=== PATIENT | female | born 1995 | race Two or more races ===

== ENCOUNTER 2018-04-26 00:37 | Emergency (ER) | payer MEDICAID ==
[2018-04-26] MEDS ORDERED: Sodium Chloride 0.9% 10 ML Syringe FLUSH PRN (00:46)
[2018-04-26] MEDS ORDERED: Lidocaine 1% with EPINEPHrine 1:100,000 20 ML MDV INJECT ONE (00:53)
[2018-04-26] MEDS ORDERED: Sodium Chloride 0.9% 1,000 ML IV SCH (01:00)
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
[2018-04-26 01:39] LABS: ACETAMINOPHEN 0 ug/mL (10-30)
== END 2018-04-26 14:50 ==
LOC: JD.ED 00:37
DX: T45.0X2A Poisoning by antiallergic and antiemetic drugs, intentional self-harm, initial encounter (principal); S61.511A Laceration without foreign body of right wrist, initial encounter; F32.9 Major depressive disorder, single episode, unspecified; F10.120 Alcohol abuse with intoxication, uncomplicated; Y90.5 Blood alcohol level of 100-119 mg/100 ml; X78.8XXA Intentional self-harm by other sharp object, initial encounter
CPT/HCPCS: 12002; 36415; 80053; 80306; 84443; 84703; 85025; 93005; 96360; 96361; 99285; G0480; J7040; J7050

== ENCOUNTER 2018-05-04 15:25 | Emergency (ER) | payer MEDICAID | END 2018-05-04 15:35 | LOC: JD.ED 15:25 | DX: S61.511D Laceration without foreign body of right wrist, subsequent encounter (principal); X58.XXXD Exposure to other specified factors, subsequent encounter ==

== ENCOUNTER 2019-01-04 21:11 | Emergency (ER) | payer OTHER, MEDICAID ==
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
--- NOTE | 2019-01-06 08:31 | ER ---
CHIEF COMPLAINT: Swelling. HISTORY OF PRESENT ILLNESS: The patient has had worsening swelling over the last month or so, mostly affecting her lower extremities, but also in her hands. According to the patient, she has not had any lab work done. She has been seen in the clinic, and she has not had any results for this. She has some lower leg swelling, worse on the left. However, she had trauma to this leg when she was younger. She has some swelling and discomfort in her hands. She has a strong family history of thyroid disorders. She has not had any nausea or vomiting. No chest pain, chest pressure. No breathing difficulties or shortness of breath. REVIEW OF SYSTEMS: GENERAL: Negative for fevers, chills. Some fatigue, weakness, and tiredness. ENT: Unremarkable. CARDIOVASCULAR: No chest pain, chest pressure. PULMONARY: No breathing difficulty, shortness of breath. GASTROINTESTINAL: Intermittent abdominal discomfort, but no nausea, vomiting, constipation, or diarrhea. GENITOURINARY: No burning or frequency with urination. PHYSICAL EXAMINATION: VITAL SIGNS: Stable. Afebrile. No acute distress. HEENT: Head: Normocephalic. Ears: Tympanic membranes normal color and contour. External ears and canals normal. Eyes: Normal. Oropharynx: Moist mucosa. No evidence of erythema or exudate. No acute changes. NECK: Supple. No palpable masses. No lymphadenopathy. Thyroid is not palpable. HEART: Regular rate and rhythm. No murmur. LUNGS: Clear. Respirations are nonlabored. No wheezes, crackles, or rhonchi. ABDOMEN: Active sounds, soft. LABORATORY EVALUATION: CBC is for the most part unremarkable, normal differential. D-dimer was checked, which was 0.42, normal. Chemistries were nondiagnostic. TSH 2.55, free T4 of 0.89. Urinalysis negative. COURSE IN THE EMERGENCY ROOM: I discussed the findings and labs with the patient. I really have no good explanation for her symptomology at this point. She does have some puffiness on exam, mostly in her lower extremities, left greater than right, mild in her hands. We will try her on a brief course of Lasix 20 mg daily with potassium 20 mEq daily. She has followup in the clinic in 4 to 5 days. ASSESSMENT: 1. Fatigue. 2. Edema, mild. PLAN: 1. The patient is to be started on Lasix 20 mg, #7, 1 p.o. daily. 2. Potassium chloride 20 mEq, #7, 1 p.o. daily. 3. The patient agrees to return to the emergency room with any questions, problems, or worsening symptoms. MMODAL /[id number]
== END 2019-01-05 00:40 | disposition home or self-care (01) ==
LOC: JD.ED 21:11
DX: R53.83 Other fatigue (principal); R60.9 Edema, unspecified
CPT/HCPCS: 36415; 80053; 81001; 84439; 84443; 85007; 85027; 85379; 99283; 99284

== ENCOUNTER 2019-03-05 20:54 | Emergency (ER) | payer OTHER, MEDICAID ==
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
[2019-03-05] MEDS ORDERED: Sodium Chloride 0.9% 1,000 ML IV SCH (21:30)
[2019-03-05] MEDS ORDERED: Ondansetron 4 MG/2 ML SDV IVPUSH ONE (21:31)
[2019-03-05] MEDS ORDERED: HYDROmorphone 0.5 MG/0.5 ML Syringe IVPUSH ONE (21:32)
[2019-03-05] MEDS ORDERED: HYDROmorphone 1 MG/ML Syringe IVPUSH ONE (23:19)
--- NOTE | 2019-03-06 08:18 | US ---
First trimester obstetrical ultrasound: Multiple real-time images were obtained transvaginally. Comparison: No previous studies for current . A very small cystic area within the endometrial cavity is seen. No pole or yolk sac is seen due to the small size of this finding. No subchorionic hemorrhage is seen. Maternal ovaries are unremarkable. Impression: 1. Small cystic area within the endometrial cavity. Uncertain if this represents very early gestational sac too small to visualize pole or yolk sac. Recommend repeat study in 11 days to further evaluate. Diagnostic code #3 I agree with preliminary report from ad, finalized on 03/05/19, 11:33 PM Central Time
== END 2019-03-05 23:30 | disposition home or self-care (01) ==
LOC: JD.ED 20:54
DX: O03.4 Incomplete spontaneous abortion without complication (principal); O02.0 Blighted ovum and nonhydatidiform mole; Z79.899 Other long term (current) drug therapy
CPT/HCPCS: 36415; 76817; 80053; 81001; 84702; 84703; 85007; 85027; 86850; 86900; 86901; 96361; 96374; 96375; 96376; 99284; J1170; J2405; J7040

== ENCOUNTER 2019-03-10 13:58 | Emergency (ER) | payer OTHER, MEDICAID ==
[2019-03-10] MEDS ORDERED: HYDROmorphone 0.5 MG/0.5 ML Syringe IVPUSH ONE ×2 (16:12→17:54)
[2019-03-10] MEDS ORDERED: Ondansetron 4 MG/2 ML SDV IVPUSH ONE ×2 (16:12→18:01)
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
[2019-03-10] MEDS ORDERED: Dextrose 5%-0.9% NaCl 1,000 ML IV SCH (16:15)
[2019-03-10] MEDS ORDERED: Ondansetron 4 MG/2 ML SDV ONE (18:02)
== END 2019-03-10 18:10 | disposition home or self-care (01) ==
LOC: JD.ED 13:58
DX: O20.0 Threatened abortion (principal); O99.341 Other mental disorders complicating pregnancy, first trimester; F41.9 Anxiety disorder, unspecified; F32.9 Major depressive disorder, single episode, unspecified; Z79.899 Other long term (current) drug therapy
CPT/HCPCS: 36415; 80053; 81001; 84702; 85007; 85027; 96361; 96374; 96375; 96376; 99284; J1170; J2405; J7042

== ENCOUNTER 2019-05-06 07:27 | Observation (INO) | payer OTHER, MEDICAID ==
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
[2019-05-06] MEDS ORDERED: Metoclopramide 10 MG/2 ML SDV IVPUSH ONE (08:07)
[2019-05-06] MEDS ORDERED: cefTRIAXone 1 GM in Sodium Chloride 0.9% 100 ML IV ONE (08:08)
[2019-05-06] MEDS ORDERED: HYDROmorphone 0.5 MG/0.5 ML Syringe IVPUSH ONE (08:08)
[2019-05-06] MEDS ORDERED: Dextrose 5%-0.9% NaCl 1,000 ML IV SCH (08:15)
[2019-05-06] MEDS ORDERED: Acetaminophen 325 MG Tab PO STA (09:33)
[2019-05-06] MEDS ORDERED: Dextrose 5%-Lactated Ringers 1,000 ML IV SCH (11:00)
[2019-05-06] MEDS: Acetaminophen 325 MG Tab PO PRN ×2 (15:17→20:46)
[2019-05-06] MEDS: Dextrose 5%-0.9% NaCl 1,000 ML IV SCH ×2 (15:25→20:51)
[2019-05-06] MEDS: Ondansetron 4 MG/2 ML SDV IVPUSH PRN ×2 (17:12→20:13)
[2019-05-06] MEDS ORDERED: Benzocaine/Menthol 20%-0.5% Spray 56 GM Canister TOP PRN (18:41)
[2019-05-07] MEDS: Ondansetron 4 MG/2 ML SDV IVPUSH PRN (05:17)
[2019-05-07] MEDS: Dextrose 5%-0.9% NaCl 1,000 ML IV SCH (05:17)
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
--- NOTE | 2019-05-07 06:29 | PCM.PN ---
- General Info Date of Service: 05/07/19 Functional Status: Reports: Pain Controlled - Review of Systems General: Reports: No Symptoms HEENT: Reports: No Symptoms Pulmonary: Reports: No Symptoms Cardiovascular: Reports: No Symptoms Gastrointestinal: Reports: No Symptoms Genitourinary: Reports: No Symptoms Musculoskeletal: Reports: No Symptoms Skin: Reports: No Symptoms Neurological: Reports: No Symptoms Psychiatric: Reports: No Symptoms - Patient Data Vitals - Most Recent: Last Vital Signs Temp 36.8 C 05/07/19 05:16 Pulse 78 05/07/19 05:16 Resp 16 05/07/19 05:16 BP 101/55 L 05/07/19 05:16 Pulse Ox 98 05/07/19 05:16 Weight - Most Recent: 80.966 kg I&O - Last 24 Hours: Intake & Output 05/06/19 05/06/19 05/07/19 14:59 22:59 06:59 Intake Total 120 2105 Balance 120 2105 Lab Results Last 24 Hours: Laboratory Results - last 24 hr 05/06/19 05/06/19 05/06/19 Range/Units 08:15 08:15 08:15 WBC 12.38 H (3.98-10.04) K/mm3 RBC 4.90 (3.98-5.22) M/mm3 Hgb 13.5 (11.2-15.7) gm/L Hct 39.6 (34.1-44.9) % MCV 80.8 D (79.4-94.8) fl MCH 27.6 (25.6-32.2) pg MCHC 34.1 (32.2-35.5) g/dl RDW Std Deviation 37.8 (36.4-46.3) fL Plt Count 364 (182-369) K/mm3 MPV 10.0 (9.4-12.3) fl Neut % (Auto) (34.0-71.1) % Lymph % (Auto) (19.3-51.7) % [place] % (Auto) (4.7-12.5) % Eos % (Auto) (0.7-5.8) Baso % (Auto) (0.1-1.2) % Neut # (Auto) (1.56-6.13) K/mm3 Lymph # (Auto) (1.18-3.74) K/mm3 [place] # (Auto) (0.24-0.36) K/mm3 Eos # (Auto) (0.04-0.36) K/mm3 Baso # (Auto) (0.01-0.08) K/mm3 Neutrophils % (Manual) 89 H (40-60) % Band Neutrophils % 0 (0-10) % Lymphocytes % (Manual) 8 L (20-40) % Atypical Lymphs % 0 % Monocytes % (Manual) 3 (2-10) % Eosinophils % (Manual) 0 L (0.7-5.8) % Basophils % (Manual) 0 L (0.1-1.2) Platelet Estimate Adequate RBC Morph Comment Normal Sodium 137 (136-145) mEq/L Potassium 3.8 (3.5-5.1) mEq/L Chloride 101 (98-107) mEq/L Carbon Dioxide 23 (21-32) mEq/L Anion Gap 16.8 H (5-15) BUN 4 L (7-18) mg/dL Creatinine 0.4 L (0.55-1.02) mg/dL Est Cr Clr Drug Dosing 168.57 mL/min Estimated GFR (MDRD) > 60 (>60) mL/min BUN/Creatinine Ratio 10.0 L (14-18) Glucose 97 (74-106) mg/dL Calcium 9.0 (8.5-10.1) mg/dL Total Bilirubin 0.6 (0.2-1.0) mg/dL AST 23 (15-37) U/L ALT 25 (14-59) U/L Alkaline Phosphatase 121 H (46-116) U/L C-Reactive Protein 6.6 H* (<1.0) mg/dL Total Protein 7.4 (6.4-8.2) g/dl Albumin 3.2 L (3.4-5.0) g/dl Globulin 4.2 gm/dL Albumin/Globulin Ratio 0.8 L (1-2) Urine Color Yellow (Yellow) Urine Appearance Clear (Clear) Urine pH 7.5 (5.0-8.0) Ur Specific [place] 1.015 (1.005-1.030) Urine Protein Negative (Negative) Urine Glucose (UA) Negative (Negative) Urine Ketones 2+ H (Negative) Urine Occult Blood Negative (Negative) Urine Nitrite Negative (Negative) Urine Bilirubin Negative (Negative) Urine Urobilinogen 0.2 (0.2-1.0) Ur Leukocyte Esterase 1+ H (Negative) Urine RBC 0-5 (0-5) /hpf Urine WBC 0-5 (0-5) /hpf Ur Epithelial Cells 5-10 H (0-5) /hpf Urine Bacteria Few (FEW) /hpf Urine Mucus Not seen (FEW) /hpf 05/07/19 Range/Units 05:06 WBC 9.69 (3.98-10.04) K/mm3 RBC 4.39 (3.98-5.22) M/mm3 Hgb 12.2 (11.2-15.7) gm/L Hct 36.3 (34.1-44.9) % MCV 82.7 (79.4-94.8) fl MCH 27.8 (25.6-32.2) pg MCHC 33.6 (32.2-35.5) g/dl RDW Std Deviation 39.1 (36.4-46.3) fL Plt Count 305 (182-369) K/mm3 MPV 10.2 (9.4-12.3) fl Neut % (Auto) 71.5 H (34.0-71.1) % Lymph % (Auto) 20.1 (19.3-51.7) % [place] % (Auto) 7.6 (4.7-12.5) % Eos % (Auto) 0.6 L (0.7-5.8) Baso % (Auto) 0.1 (0.1-1.2) % Neut # (Auto) 6.92 H (1.56-6.13) K/mm3 Lymph # (Auto) 1.95 (1.18-3.74) K/mm3 [place] # (Auto) 0.74 H (0.24-0.36) K/mm3 Eos # (Auto) 0.06 (0.04-0.36) K/mm3 Baso # (Auto) 0.01 (0.01-0.08) K/mm3 Neutrophils % (Manual) (40-60) % Band Neutrophils % (0-10) % Lymphocytes % (Manual) (20-40) % Atypical Lymphs % % Monocytes % (Manual) (2-10) % Eosinophils % (Manual) (0.7-5.8) % Basophils % (Manual) (0.1-1.2) Platelet Estimate RBC Morph Comment Sodium (136-145) mEq/L Potassium (3.5-5.1) mEq/L Chloride (98-107) mEq/L Carbon Dioxide (21-32) mEq/L Anion Gap (5-15) BUN (7-18) mg/dL Creatinine (0.55-1.02) mg/dL Est Cr Clr Drug Dosing mL/min Estimated GFR (MDRD) (>60) mL/min BUN/Creatinine Ratio (14-18) Glucose (74-106) mg/dL Calcium (8.5-10.1) mg/dL Total Bilirubin (0.2-1.0) mg/dL AST (15-37) U/L ALT (14-59) U/L Alkaline Phosphatase (46-116) U/L C-Reactive Protein (<1.0) mg/dL Total Protein (6.4-8.2) g/dl Albumin (3.4-5.0) g/dl Globulin gm/dL Albumin/Globulin Ratio (1-2) Urine Color (Yellow) Urine Appearance (Clear) Urine pH (5.0-8.0) Ur Specific [place] (1.005-1.030) Urine Protein (Negative) Urine Glucose (UA) (Negative) Urine Ketones (Negative) Urine Occult Blood (Negative) Urine Nitrite (Negative) Urine Bilirubin (Negative) Urine Urobilinogen (0.2-1.0) Ur Leukocyte Esterase (Negative) Urine RBC (0-5) /hpf Urine WBC (0-5) /hpf Ur Epithelial Cells (0-5) /hpf Urine Bacteria (FEW) /hpf Urine Mucus (FEW) /hpf Med Orders - Current: Current Medications Acetaminophen (Tylenol) 650 mg PO Q4H PRN PRN Reason: Pain/Fever Last Admin: 05/06/19 20:46 Dose: 650 mg Benzocaine/Menthol (Dermoplast Pain Relief [place]) 0 gm TOP ASDIRECTED PRN PRN Reason: Pain Last Admin: 05/06/19 20:13 Dose: 1 applic Dextrose/Sodium Chloride (Dextrose 5%-Normal Saline) 1,000 mls @ 150 mls/hr IV ASDIRECTED [place] Last Admin: 05/07/19 05:17 Dose: 150 mls/hr Cefazolin Sodium/Dextrose 1 gm (/ Premix) 50 mls @ 100 mls/hr IV Q12HR [facility] Ondansetron HCl (Zofran) 4 mg IVPUSH Q4H PRN PRN Reason: Nausea Last Admin: 05/07/19 05:17 Dose: 4 mg Discontinued Medications Acetaminophen (Tylenol) 650 mg PO NOW STA Stop: 05/06/19 09:34 Last Admin: 05/06/19 10:02 Dose: 650 mg Hydromorphone HCl (Dilaudid) 0.5 mg IVPUSH ONETIME ONE Stop: 05/06/19 08:09 Last Admin: 05/06/19 08:53 Dose: 0.5 mg Dextrose/Sodium Chloride (Dextrose 5%-Normal Saline) 1,000 mls @ 999 mls/hr IV ASDIRECTED [facility] Last Infusion: 05/06/19 09:51 Dose: Infused Ceftriaxone Sodium 1 gm/ (Sodium Chloride) 100 mls @ 200 mls/hr IV ONETIME ONE Stop: 05/06/19 08:37 Last Admin: 05/06/19 08:50 Dose: 200 mls/hr Dextrose/Lactated Ringer's (Dextrose 5%-Lactated Ringers) 1,000 mls @ 150 mls/ hr IV ASDIRECTED [facility] Metoclopramide HCl (Reglan) 7.5 mg IVPUSH ONETIME ONE Stop: 05/06/19 08:08 Last Admin: 05/06/19 08:51 Dose: 7.5 mg - Exam General: Alert, Oriented HEENT: Pupils Equal, Pupils Reactive, EOMI, Mucous Membr. Moist/[place] Neck: Supple Lungs: Clear to Auscultation, Normal Respiratory Effort Cardiovascular: Regular Rate, Regular Rhythm GI/Abdominal Exam: Normal Bowel Sounds, Soft, Non-Tender, No Organomegaly, No Distention, No Abnormal Bruit, No Mass, Pelvis Stable Back Exam: Normal Inspection, Full Range of Motion Extremities: Normal Inspection, Normal Range of Motion, Non-Tender, No Pedal Edema, Normal Capillary Refill Skin: Warm, Dry, Intact Wound/Incisions: Healing Well Neurological: No New Focal Deficit Psy/Mental Status: Alert, Normal Affect, Normal Mood - Problem List Review Problem List Initiated/Reviewed/Updated: Yes - My Orders Last 24 Hours: My Active Orders 05/06/19 15:09 Acetaminophen [Tylenol] 650 mg PO Q4H PRN 05/06/19 15:30 Dextrose 5%-0.9% NaCl [Dextrose 5%-Normal Saline] 1,000 ml IV ASDIRECTED 05/06/19 16:43 Ondansetron [Zofran] 4 mg IVPUSH Q4H PRN 05/06/19 18:17 Resuscitation Status Routine 05/06/19 18:32 Antiembolic Devices [RC] BID SCD [Sequential Compression Device] [OM.PC] Routine 05/06/19 18:41 Benzocaine/Menthol [Dermoplast Pain Relief [place]] 0 gm TOP ASDIRECTED PRN 05/06/19 18:47 Up ad Gina [RC] ASDIRECTED 05/06/19 18:51 Heat Therapy [OM.PC] Routine 05/06/19 Lunch Regular Diet [DIET] 05/07/19 05:06 BASIC METABOLIC PANEL,BMP [CHEM] Routine 05/07/19 09:00 ceFAZolin [Ancef] 1 gm Premix Bag 1 bag IV Q12HR - Plan Plan:: Severe nausea and vomiting in the setting of pyelo. Continue antibiotics. Advance diet and transition to PO nausea medication today. Hopefully discharge tomorrow or later today
[2019-05-07] MEDS ORDERED: Ondansetron 4 MG Tab.DIS PO PRN (06:33)
[2019-05-07] MEDS: ceFAZolin 1 GM in Premix Bag 1 BAG IV SCH ×2 (09:17→20:16)
[2019-05-07] MEDS: Acetaminophen 325 MG Tab PO PRN ×3 (09:28→20:16)
--- NOTE | 2019-05-08 06:50 | PCM.DCSUM1 ---
Discharge Summary - Hospital Course Diagnosis: Stroke: No - Discharge Data Discharge Date: 05/08/19 Discharge Disposition: Home, Self-Care 01 Condition: Good - Patient Summary/Data Hospital Course: Admitted. No vomiting while in the hospital. Tolerated pos. - Patient Instructions Diet: Usual Diet as Tolerated Activity: No Strenuous Activities Driving: May Drive Today Showering/Bathing: May Shower Notify Provider of: Fever, Increased Pain, Swelling and Redness, Nausea and/or Vomiting (intractable) - Discharge Plan *PRESCRIPTION DRUG MONITORING PROGRAM REVIEWED*: Not Applicable *COPY OF PRESCRIPTION DRUG MONITORING REPORT IN PATIENT JUAN MANUEL: Not Applicable Home Medications: Home Meds Escitalopram [Lexapro] 20 mg PO DAILY 04/26/18 [History] clonazePAM [Clonazepam] 1 mg PO BID 04/26/18 [History] Ondansetron [Zofran ODT] 4 mg PO Q4H PRN #20 tab.dis 04/03/19 [Rx] Patient Handouts: Pyelonephritis, Adult, [id number], Nausea and Vomiting, Adult Forms: ED Department Discharge Referrals: Karolina Duarte MD [Primary Care Provider] - - Discharge Summary/Plan Comment DC Time >30 min.: Yes - Patient Data Vitals - Most Recent: Last Vital Signs Temp 37.0 C 05/08/19 03:00 Pulse 72 05/08/19 03:00 Resp 16 05/08/19 03:00 BP 107/66 05/08/19 03:00 Pulse Ox 97 05/08/19 03:00 Weight - Most Recent: 79.923 kg I&O - Last 24 hours: Intake & Output 05/07/19 05/07/19 05/08/19 14:59 22:59 06:59 Intake Total 970 850 Balance 970 850 Lab Results - Last 24 hrs: Laboratory Results - last 24 hr 05/07/19 Range/Units 05:06 Sodium 137 (136-145) mEq/L Potassium 3.6 (3.5-5.1) mEq/L Chloride 106 (98-107) mEq/L Carbon Dioxide 19 L (21-32) mEq/L Anion Gap 15.6 H (5-15) BUN 2 L (7-18) mg/dL Creatinine 0.4 L (0.55-1.02) mg/dL Est Cr Clr Drug Dosing 168.57 mL/min Estimated GFR (MDRD) > 60 (>60) mL/min BUN/Creatinine Ratio 5.0 L (14-18) Glucose 88 (74-106) mg/dL Calcium 8.1 L (8.5-10.1) mg/dL CINDY Results - Last 24 hrs: Microbiology 05/06/19 09:02 Aerobic Blood Culture - Preliminary Blood - Venous - Lab Draw NO GROWTH AFTER 1 DAY Anaerobic Blood Culture - Preliminary NO GROWTH AFTER 1 DAY 05/06/19 08:46 Aerobic Blood Culture - Preliminary Blood - Venous NO GROWTH AFTER 1 DAY Anaerobic Blood Culture - Preliminary NO GROWTH AFTER 1 DAY Med Orders - Current: Current Medications Acetaminophen (Tylenol) 650 mg PO Q4H PRN PRN Reason: Pain/Fever Last Admin: 05/07/19 20:16 Dose: 650 mg Benzocaine/Menthol (Dermoplast Pain Relief [place]) 0 gm TOP ASDIRECTED PRN PRN Reason: Pain Last Admin: 05/06/19 20:13 Dose: 1 applic Cefazolin Sodium/Dextrose 1 gm (/ Premix) 50 mls @ 100 mls/hr IV Q12HR [facility] Last Admin: 05/07/19 20:16 Dose: 100 mls/hr Ondansetron HCl (Zofran Odt) 4 mg PO Q6H PRN PRN Reason: Nausea/Vomiting Last Admin: 05/07/19 17:52 Dose: 4 mg Discontinued Medications Acetaminophen (Tylenol) 650 mg PO NOW STA Stop: 05/06/19 09:34 Last Admin: 05/06/19 10:02 Dose: 650 mg Hydromorphone HCl (Dilaudid) 0.5 mg IVPUSH ONETIME ONE Stop: 05/06/19 08:09 Last Admin: 05/06/19 08:53 Dose: 0.5 mg Dextrose/Sodium Chloride (Dextrose 5%-Normal Saline) 1,000 mls @ 999 mls/hr IV ASDIRECTED [facility] Last Infusion: 05/06/19 09:51 Dose: Infused Ceftriaxone Sodium 1 gm/ (Sodium Chloride) 100 mls @ 200 mls/hr IV ONETIME ONE Stop: 05/06/19 08:37 Last Admin: 05/06/19 08:50 Dose: 200 mls/hr Dextrose/Lactated Ringer's (Dextrose 5%-Lactated Ringers) 1,000 mls @ 150 mls/ hr IV ASDIRECTED [place] Dextrose/Sodium Chloride (Dextrose 5%-Normal Saline) 1,000 mls @ 150 mls/hr IV ASDIRECTED [place] Last Admin: 05/07/19 05:17 Dose: 150 mls/hr Metoclopramide HCl (Reglan) 7.5 mg IVPUSH ONETIME ONE Stop: 05/06/19 08:08 Last Admin: 05/06/19 08:51 Dose: 7.5 mg Ondansetron HCl (Zofran) 4 mg IVPUSH Q4H PRN PRN Reason: Nausea Last Admin: 05/07/19 05:17 Dose: 4 mg
[2019-05-08] MEDS: ceFAZolin 1 GM in Premix Bag 1 BAG IV SCH (09:21)
== END 2019-05-08 11:02 | disposition home or self-care (01) ==
LOC: JD.ED 07:27 → UNDOADMIN 12:48 → JD.MS 12:48
PROVIDERS: ADMIT Obstetrics & Gynecology; ATTEND Obstetrics & Gynecology
DX: O23.01 Infections of kidney in pregnancy, first trimester (principal); O99.341 Other mental disorders complicating pregnancy, first trimester; F32.9 Major depressive disorder, single episode, unspecified; F41.9 Anxiety disorder, unspecified; Z3A.13 13 weeks gestation of pregnancy; Z87.891 Personal history of nicotine dependence; Z87.59 Personal history of other complications of pregnancy, childbirth and the puerperium; Z79.899 Other long term (current) drug therapy
CPT/HCPCS: 36415; 80048; 80053; 81001; 85007; 85025; 85027; 86140; 87040; 87086; 87088; 96361; 96365; 96375; 99284; A9270; J0690; J0696; J1170; J2405; J2765; J7030; J7042; 96366; 96367; 96376; G0378

== ENCOUNTER 2019-09-17 20:55 | Emergency (ER) | payer OTHER ==
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
[2019-09-17] MEDS ORDERED: Lactated Ringers 1,000 ML IV ONE ×2 (21:25→21:27)
[2019-09-17] MEDS ORDERED: Ondansetron 4 MG/2 ML SDV IVPUSH ONE (21:25)
[2019-09-17] MEDS ORDERED: Ondansetron 4 MG Tab.DIS PO ONE (23:01)
== END 2019-09-17 23:55 | disposition home or self-care (01) ==
LOC: JD.ED 20:55
DX: O99.283 Endocrine, nutritional and metabolic diseases complicating pregnancy, third trimester (principal); E86.0 Dehydration; O99.613 Diseases of the digestive system complicating pregnancy, third trimester; K52.9 Noninfective gastroenteritis and colitis, unspecified; O24.414 Gestational diabetes mellitus in pregnancy, insulin controlled; Z3A.33 33 weeks gestation of pregnancy
CPT/HCPCS: 36415; 80053; 81001; 85007; 85027; 96361; 96374; 99284; A9270; J2405; J7120; 99283

== ENCOUNTER 2019-10-18 09:55 | Inpatient (IN) | payer OTHER ==
[~2019-10-18 09:55] MED LIST: Lidocaine 1.5% with EPINEPHrine 1:200,000 5 ML Amp ONE
[2019-10-18] MEDS ORDERED: Sodium Chloride 0.9% 10 ML Syringe FLUSH PRN ×2 (10:12→12:02)
[2019-10-18] MEDS ORDERED: Ondansetron 4 MG/2 ML SDV IVPUSH PRN ×2 (10:12→12:02)
[2019-10-18] MEDS ORDERED: Nalbuphine 10 MG/ML Syringe IVPUSH PRN ×2 (10:12→12:02)
[2019-10-18] MEDS ORDERED: Lactated Ringers 1,000 ML IV SCH (10:15)
[2019-10-18] MEDS ORDERED: Oxytocin/Lactated Ringers 10 UNIT/1,000 ML BAG IV SCH ×3 (10:15→14:00)
--- NOTE | 2019-10-18 10:16 | PCM.LDHP ---
L&D History of Present Illness - General Date of Service: 10/18/19 Admit Problem/Dx: Patient Status Order with Admit Dx/Problem 10/18/19 10:13 Patient Status [ADT] Routine Admission Diagnosis/Problem Admission Diagnosis/Problem Spontaneous rupture of membranes Source of Information: Patient History Limitations: Reports: No Limitations - History of Present Illness Introduction:: Patient is a 24 y/o at 37 2/7 wks who presents for concerns of rupture of membranes. States had a few small gushes of fluid around 1000 this AM. initial amnisure done in L&D negative, however, when patient stood up to discharge home had a large amount of fluid run down her legs onto the floor. 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: , Spontaneous : 4 Para: 2 LMP (Approximate): Psychiatric History: Reports: Anxiety, Depression, Suicide Attempt, Suicidal Ideation Endocrine/Metabolic History: Reports: Diabetes, Gestational - Infectious Disease History Infectious Disease History: Reports: Chicken Pox - Past Surgical History Other Surgical History Comment: No past surgical history Social & Family History - Family History Family Medical History: Noncontributory - Tobacco Use Smoking Status *Q: Former Smoker - Caffeine Use Caffeine Use: Reports: None Caffeine Use Comment: Patient reports she drinks about 1 cup of tea per day - Alcohol Use Alcohol Use History: No - Recreational Drug Use Recreational Drug Use: No - Living Situation & Occupation Living situation: Reports: Occupation: Employed H&P Review of Systems - Review of Systems: Review Of Systems: See Below General: Reports: No Symptoms Pulmonary: Reports: No Symptoms Cardiovascular: Reports: No Symptoms Gastrointestinal: Reports: Abdominal Pain (mild contractions ) Genitourinary: Reports: No Symptoms Musculoskeletal: Reports: No Symptoms Psychiatric: Reports: No Symptoms Neurological: Reports: No Symptoms L&D Exam - Exam Exam: See Below - OB Specific Contraction Intensity: Mild Movement: Active Heart Tones: Present Heart Tones per Min: 125 Heart Rate (FHR) Variability: Moderate (6-25 bmp) Presentation: Vertex - Mckinnon Score Mckinnon Score Cervix Position: Midposition Mckinnon Score Consistency: Soft Mckinnon Score Effacement: 31-50% Mckinnon Score Dilation: 1-2 cm Mckinnon Score 's Station: -2 Mckinnon Score Total: 6 - Exam General: Alert, Oriented, Cooperative Lungs: Clear to Auscultation, Normal Respiratory Effort Cardiovascular: Regular Rate, Regular Rhythm GI/Abdominal Exam: Soft, Non-Tender Genitourinary: Normal external exam Extremities: Normal Inspection Skin: Warm, Dry, Intact - Patient Data Result Diagrams: 10/18/19 10:40 - Problem List (1) 37 weeks gestation of SNOMED Code(s): 36946984 ICD Code: Z3A.37 - 37 WEEKS GESTATION OF Status: Acute Current Visit: Yes (2) GBS carrier SNOMED Code(s): 2016899867560 ICD Code: Z22.330 - CARRIER OF GROUP B STREPTOCOCCUS Status: Acute Current Visit: Yes (3) Gestational diabetes SNOMED Code(s): 06599153 ICD Code: O24.419 - GESTATIONAL DIABETES MELLITUS IN , UNSP CONTROL Status: Acute Current Visit: Yes Qualifiers: Gestational diabetes mellitus control: insulin-controlled Trimester: third trimester Qualified Code(s): O24.414 - Gestational diabetes mellitus in , insulin controlled Problem List Initiated/Reviewed/Updated: Yes Orders Last 24hrs: Active Orders 24 hr Category Date Time Status Patient Status [ADT] Routine ADT 10/18/19 10:13 Ordered Activity as Tolerated [RC] PFP Care 10/18/19 10:12 Ordered Communication Order [RC] ASDIRECTED Care 10/18/19 10:12 Ordered Heart Tones [RC] ASDIRECTED Care 10/18/19 10:13 Ordered Non Stress Test [RC] PER UNIT ROUTINE Care 10/18/19 10:12 Ordered Notify Provider [RC] PRN Care 10/18/19 10:12 Ordered Peripheral IV Care [RC] . DIRECTED Care 10/18/19 10:13 Ordered Vital Signs [RC] PER UNIT ROUTINE Care 10/18/19 10:12 Ordered Regular Diet [DIET] Diet 10/18/19 Breakfast Ordered CBC W/O DIFF,HEMOGRAM [HEME] Routine Lab 10/18/19 10:12 Ordered RAPID PLASMA REAGIN,RPR [CHEM] Routine Lab 10/18/19 10:12 Ordered TYPE AND SCREEN [BBK] Routine Lab 10/18/19 10:12 Ordered Ampicillin 1 gm Med 10/18/19 10:15 Ordered Sodium Chloride 0.9% [Normal Saline] 100 ml IV Q4H Ampicillin 2 gm Med 10/18/19 10:12 Ordered Sodium Chloride 0.9% [Normal Saline] 100 ml IV ONETIME Lactated Ringers [Ringers, Lactated] 1,000 ml Med 10/18/19 10:15 Ordered IV ASDIRECTED Nalbuphine [Nubain] Med 10/18/19 10:12 Ordered 10 mg IVPUSH Q2H PRN Ondansetron [Zofran] Med 10/18/19 10:12 Ordered 4 mg IVPUSH Q4H PRN Oxytocin/Lactated Ringers [Pitocin in LR 10 Units/1,000 Med 10/18/19 10:15 Ordered ML] 10 unit in 1,000 ml IV .CONTINUOUS Sodium Chloride 0.9% [Saline Flush] Med 10/18/19 10:12 Ordered 10 ml FLUSH ASDIRECTED PRN Electronic Heart Tones Ext w TOCO [WOMSER] Oth 10/18/19 10:12 Ordered Routine Electronic Heart Tones Internal [WOMSER] Per Unit Oth 10/18/19 10:12 Ordered Routine Peripheral IV Insertion Adult [OM.PC] Routine Oth 10/18/19 10:12 Ordered Resuscitation Status Routine Resus Stat 10/18/19 10:12 Ordered Assessment/Plan Comment:: * Labs done * GBS positive, start Ampicillin * Blood sugars q4 in labor while latent, q2 once active * Pain control per patient preference * Anticipate
[2019-10-18] MEDS ORDERED: Ampicillin 2 GM in Sodium Chloride 0.9% 100 ML IV ONE ×2 (10:30→12:00)
[2019-10-18] MEDS: Lactated Ringers 1,000 ML IV SCH ×3 (12:36→17:30)
[2019-10-18] MEDS ORDERED: FLU Vacc QS2019-20(6MOS+)/PF 60 MCG/0.5 ML SYRINGE IM ONE (14:00)
[2019-10-18] MEDS ORDERED: Ampicillin 1 GM in Sodium Chloride 0.9% 100 ML IV SCH ×2 (14:30→16:00)
[2019-10-18] MEDS ORDERED: Bupivacaine/fentaNYL/NS 100 ML Bag EPIDUR PRN (17:05)
[2019-10-18] MEDS ORDERED: diphenhydrAMINE 50 MG/ML SDV IVPUSH PRN (17:05)
[2019-10-18] MEDS ORDERED: fentaNYL 100 MCG/2 ML SDV EPIDUR PRN (17:05)
[2019-10-18] MEDS ORDERED: ePHEDrine 50 MG/ML SDV IVPUSH PRN (17:05)
--- NOTE | 2019-10-18 17:40 | PCM.PREANE ---
Preanesthetic Assessment - Anesthesia/Transfusion/Family Hx Anesthesia History: Prior Anesthesia Without Reaction Transfusion History: No Prior Transfusion(s) - Review of Systems General: No Symptoms Pulmonary: No Symptoms Cardiovascular: No Symptoms Gastrointestinal: No Symptoms Neurological: No Symptoms Other: Reports: None - Physical Assessment Vital Signs: Last Vital Signs Temp 97.7 F 10/18/19 14:00 Pulse 83 10/18/19 14:00 Resp 16 10/18/19 14:00 BP 104/59 L 10/18/19 14:00 Pulse Ox 98 10/18/19 14:00 Height: 1.57 m Weight: 78.018 kg ASA Class: 3 (gestational diabetes) Mental Status: Alert & Oriented x3 Dentition: Reports: Normal Dentition Lungs: Clear to Auscultation, Normal Respiratory Effort Cardiovascular: Regular Rate, Regular Rhythm - Lab Values: Laboratory Last Values WBC 10.39 K/mm3 (3.98-10.04) H 10/18/19 10:40 RBC 4.57 M/mm3 (3.98-5.22) 10/18/19 10:40 Hgb 11.7 gm/dl (11.2-15.7) 10/18/19 10:40 Hct 36.7 % (34.1-44.9) 10/18/19 10:40 MCV 80.3 fl (79.4-94.8) 10/18/19 10:40 MCH 25.6 pg (25.6-32.2) 10/18/19 10:40 MCHC 31.9 g/dl (32.2-35.5) L 10/18/19 10:40 RDW Std Deviation 42.3 fL (36.4-46.3) 10/18/19 10:40 Plt Count 296 K/mm3 (182-369) 10/18/19 10:40 MPV 10.8 fl (9.4-12.3) 10/18/19 10:40 POC Glucose 97 mg/dL (70-105) 10/18/19 16:24 Membrane Rupture Negative 10/18/19 10:00 Blood Type O POSITIVE 10/18/19 10:40 Gel Antibody Screen Negative 10/18/19 10:40 - Allergies Allergies/Adverse Reactions: Allergies Allergy/AdvReac Type Severity Reaction Status Date / Time No Known Allergies Allergy Verified 10/18/19 13:28 - Acknowledgements Anesthesia Type Planned: Epidural Pt an Appropriate Candidate for the Planned Anesthesia: Yes Alternatives and Risks of Anesthesia Discussed w Pt/Guardian: Yes Pt/Guardian Understands and Agrees with Anesthesia Plan: Yes PreAnesthesia Questionnaire - Past Health History 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 History: Denies 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 History 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: , Spontaneous Other OB/BYN History: miscarriage about 5 yrs ago-around 6 weeks and then miscarried at 8 weeks, currently 13 weeks Neurological History: Reports: Concussion Psychiatric History: Reports: Anxiety, Depression, Suicide Attempt, Suicidal Ideation Endocrine/Metabolic History: Reports: Diabetes, Gestational - Infectious Disease History Infectious Disease History: Reports: Chicken Pox - Past Surgical History Other Surgical History Comment: No past surgical history - SUBSTANCE USE Smoking Status *Q: Former Smoker Tobacco Use Within Last Twelve Months: Cigarettes Second Hand Smoke Exposure: No Recreational Drug Use History: No - HOME MEDS Home Medications: Home Meds Escitalopram [Lexapro] 20 mg PO DAILY 04/26/18 [History] Insulin Detemir [Levemir] 10 units SQ BEDTIME 09/17/19 [History] Insulin Lispro [HumaLOG] 4 unit SQ TIDMEALS 09/17/19 [History] Mv-Mn/Iron/FA/Herbal/Digestive [ One Tablet] 1 tab PO DAILY 09/25/19 [ History] - CURRENT (IN HOUSE) MEDS Current Meds: Current Medications Citalopram Hydrobromide (Celexa) 40 mg PO DAILY [facility] Diphenhydramine HCl (Benadryl) 25 mg IVPUSH Q6H PRN PRN Reason: pruritis Ephedrine Sulfate (Ephedrine Sulfate) 5 mg IVPUSH ASDIRECTED PRN PRN Reason: Hypotension Fentanyl (Sublimaze) 100 mcg EPIDUR Q3H PRN PRN Reason: Pain Fentanyl/Bupivacaine HCl (Fentanyl/Bupivacaine/Ns 2 Mcg-0.125% 100 Ml) 100 ml EPIDUR ASDIRECTED PRN PRN Reason: Pain Lactated Ringer's (Ringers, Lactated) 1,000 mls @ 100 mls/hr IV ASDIRECTED [facility] Last Admin: 10/18/19 16:51 Dose: 999 mls/hr Ampicillin Sodium 1 gm/ Sodium (Chloride) 100 mls @ 200 mls/hr IV Q4H [facility] Last Admin: 10/18/19 16:26 Dose: 200 mls/hr Oxytocin/Lactated Ringer's (Pitocin In Lr 10 Units/1,000 Ml) 10 unit in 1,000 mls @ 500 mls/hr IV CONTINUOUS [place]INO Oxytocin/Lactated Ringer's (Pitocin In Lr 10 Units/1,000 Ml) 10 unit in 1,000 mls @ 12 mls/hr IV TITRATE [facility]INO; Protocol Last Titration: 10/18/19 15:33 Dose: 8 munits/min, 48 mls/hr Nalbuphine HCl (Nubain) 10 mg IVPUSH Q2H PRN PRN Reason: Pain Ondansetron HCl (Zofran) 4 mg IVPUSH Q4H PRN PRN Reason: Nausea/Vomiting Sodium Chloride (Saline Flush) 10 ml FLUSH ASDIRECTED PRN PRN Reason: Keep Vein Open Discontinued Medications Ampicillin Sodium 2 gm/ Sodium (Chloride) 100 mls @ 200 mls/hr IV ONETIME ONE Stop: 10/18/19 10:59 Last Admin: 10/18/19 13:58 Dose: Not Given Ampicillin Sodium 1 gm/ Sodium (Chloride) 100 mls @ 200 mls/hr IV Q4H [place] Lactated Ringer's (Ringers, Lactated) 1,000 mls @ 100 mls/hr IV ASDIRECTED [place] Oxytocin/Lactated Ringer's (Pitocin In Lr 10 Units/1,000 Ml) 10 unit in 1,000 mls @ 500 mls/hr IV .CONTINUOUS [place]INO Ampicillin Sodium 2 gm/ Sodium (Chloride) 100 mls @ 200 mls/hr IV ONETIME ONE Stop: 10/18/19 12:29 Last Admin: 10/18/19 12:36 Dose: 200 mls/hr Influenza Virus Vaccine (Fluzone Quad [id number] Syringe) 60 mcg IM .ONCE ONE Stop: 10/18/19 14:01 Nalbuphine HCl (Nubain) 10 mg IVPUSH Q2H PRN PRN Reason: Pain Ondansetron HCl (Zofran) 4 mg IVPUSH Q4H PRN PRN Reason: Nausea/Vomiting Sodium Chloride (Saline Flush) 10 ml FLUSH ASDIRECTED PRN PRN Reason: Keep Vein Open
--- NOTE | 2019-10-18 19:49 | PCM.DEL ---
L & D Note - General Info Date of Service: 10/18/19 - Delivery Note Labor: Augmented by Oxytocin Delivery Outcome: Livebirth Delivery Method: Spontaneous Vaginal Delivery-Single Delivery Mode: Spontaneous Presentation: Right Occiput Anterior (PASTORA) Nuchal Cord: None Anesthesia Type: Epidural Amniotic Fluid Description: Clear Episiotomy Type: None Laceration: None Placenta: Intact, Spontaneous Cord: 3 Vessels Estimated Blood Loss: 100 [place]: Bulb Syringe, Stimulated, Warmed, North Used, Warmer Used Delivery Comments (Free Text/Narrative):: Patient found to be complete and began pushing. With maternal pushing effort head delivered from an PASTORA presentation. No nuchal cord present. With gentle downward traction the shoulders and body delivered. placed on maternal abdomen. Cord clamped and cut. Cord blood obtained. Placenta allowed time to separate and expelled intact. Inspection of the perineum showed no lacerations. - General Info Date of Service: 10/18/19 - Patient Data Vitals - Most Recent: Last Vital Signs Temp 36.5 C 10/18/19 14:00 Pulse 83 10/18/19 14:00 Resp 16 10/18/19 14:00 BP 104/59 L 10/18/19 14:00 Pulse Ox 98 10/18/19 14:00 Weight - Most Recent: 78.018 kg - Problem List & Annotations (1) 37 weeks gestation of SNOMED Code(s): 62114441 Code(s): Z3A.37 - 37 WEEKS GESTATION OF Status: Acute Current Visit: Yes (2) GBS carrier SNOMED Code(s): 3362532493289 Code(s): Z22.330 - CARRIER OF GROUP B STREPTOCOCCUS Status: Acute Current Visit: Yes (3) Gestational diabetes SNOMED Code(s): 12144811 Code(s): O24.419 - GESTATIONAL DIABETES MELLITUS IN , UNSP CONTROL Status: Acute Current Visit: Yes Qualifiers: Gestational diabetes mellitus control: insulin-controlled Trimester: third trimester Qualified Code(s): O24.414 - Gestational diabetes mellitus in , insulin controlled (4) Vaginal delivery SNOMED Code(s): 310605928 Code(s): O80 - ENCOUNTER FOR FULL-TERM UNCOMPLICATED DELIVERY Status: Acute Current Visit: Yes - Problem List Review Problem List Initiated/Reviewed/Updated: Yes - My Orders Last 24 Hours: My Active Orders 10/18/19 10:12 Vital Signs [RC] PER UNIT ROUTINE Electronic Heart Tones Ext w TOCO [WOMSER] Routine 10/18/19 10:13 Patient Status [ADT] Routine Heart Tones [RC] ASDIRECTED Peripheral IV Care [RC] . DIRECTED 10/18/19 10:19 Blood Glucose Check, Bedside [RC] Q4HR 10/18/19 12:02 Activity as Tolerated [RC] PFP Communication Order [RC] ASDIRECTED Notify Provider [RC] PRN Vital Signs [RC] PER UNIT ROUTINE Nalbuphine [Nubain] 10 mg IVPUSH Q2H PRN Ondansetron [Zofran] 4 mg IVPUSH Q4H PRN Sodium Chloride 0.9% [Saline Flush] 10 ml FLUSH ASDIRECTED PRN Electronic Heart Tones Ext w TOCO [WOMSER] Routine Electronic Heart Tones Internal [WOMSER] Per Unit Routine Peripheral IV Insertion Adult [OM.PC] Routine Resuscitation Status Routine 10/18/19 12:03 Heart Tones [RC] ASDIRECTED Peripheral IV Care [RC] . DIRECTED 10/18/19 12:05 Blood Glucose Check, Bedside [RC] Q4H 10/18/19 12:15 Lactated Ringers [Ringers, Lactated] 1,000 ml IV ASDIRECTED Oxytocin/Lactated Ringers [Pitocin in LR 10 Units/1,000 ML] 10 unit in 1,000 ml IV CONTINUOUS 10/18/19 13:52 Influenza Vaccine Charge [RC] .DISCHARGE 10/18/19 14:00 Oxytocin/Lactated Ringers [Pitocin in LR 10 Units/1,000 ML] 10 unit in 1,000 ml IV TITRATE 10/18/19 16:00 Ampicillin 1 gm Sodium Chloride 0.9% [Normal Saline] 100 ml IV Q4H 10/18/19 Lunch Regular Diet [DIET] 10/19/19 09:00 Citalopram [Celexa] 40 mg PO DAILY - Assessment Assessment:: PPD#0 - Plan Plan:: * Routine cares * Bottle feeding * Fasting blood sugar in AM and then 2hr GTT at 6 weeks * Discharge home in 1-2 days
[2019-10-18] MEDS ORDERED: Witch Hazel Medicated Pads 40/Jar TOP PRN (21:57)
[2019-10-18] MEDS ORDERED: Acetaminophen 325 MG Tab PO PRN (21:57)
[2019-10-18] MEDS ORDERED: Docusate Sodium 100 MG Cap PO PRN (21:57)
[2019-10-18] MEDS ORDERED: Benzocaine/Menthol 20%-0.5% Spray 56 GM Canister TOP PRN (21:57)
[2019-10-18] MEDS: Ibuprofen 600 MG Tab PO PRN (22:04)
[2019-10-19] MEDS: Ibuprofen 600 MG Tab PO PRN ×3 (04:32→20:06)
--- NOTE | 2019-10-19 07:45 | PCM.PNPP ---
- General Info Date of Service: 10/19/19 Functional Status: Reports: Pain Controlled, Tolerating Diet, Ambulating, Urinating - Review of Systems General: Reports: No Symptoms Pulmonary: Reports: No Symptoms Cardiovascular: Reports: No Symptoms Gastrointestinal: Reports: No Symptoms Genitourinary: Reports: No Symptoms Musculoskeletal: Reports: No Symptoms Neurological: Reports: No Symptoms - Patient Data Vital Signs - Most Recent: Last Vital Signs Temp 36.8 C 10/19/19 07:27 Pulse 71 10/19/19 07:27 Resp 16 10/19/19 07:27 BP 93/65 10/19/19 07:27 Pulse Ox 94 L 10/19/19 07:27 Weight - Most Recent: 78.018 kg I&O - Last 24 Hours: Intake & Output 10/18/19 10/19/19 10/19/19 22:59 06:59 14:59 Intake Total 4200 Balance 4200 Lab Results - Last 24 Hours: Laboratory Results - last 24 hr 10/18/19 10/18/19 10/18/19 Range/Units 10:00 10:40 10:40 WBC 10.39 H (3.98-10.04) K/mm3 RBC 4.57 (3.98-5.22) M/mm3 Hgb 11.7 (11.2-15.7) gm/dl Hct 36.7 (34.1-44.9) % MCV 80.3 (79.4-94.8) fl MCH 25.6 (25.6-32.2) pg MCHC 31.9 L (32.2-35.5) g/dl RDW Std Deviation 42.3 (36.4-46.3) fL Plt Count 296 (182-369) K/mm3 MPV 10.8 (9.4-12.3) fl POC Glucose (70-105) mg/dL Membrane Rupture Negative RPR Non-reactive (NONREACTIVE) Blood Type Gel Antibody Screen 10/18/19 10/18/19 10/18/19 Range/Units 10:40 12:39 16:24 WBC (3.98-10.04) K/mm3 RBC (3.98-5.22) M/mm3 Hgb (11.2-15.7) gm/dl Hct (34.1-44.9) % MCV (79.4-94.8) fl MCH (25.6-32.2) pg MCHC (32.2-35.5) g/dl RDW Std Deviation (36.4-46.3) fL Plt Count (182-369) K/mm3 MPV (9.4-12.3) fl POC Glucose 60 L 97 (70-105) mg/dL Membrane Rupture RPR (NONREACTIVE) Blood Type O POSITIVE Gel Antibody Screen Negative 10/19/19 Range/Units 04:30 WBC (3.98-10.04) K/mm3 RBC (3.98-5.22) M/mm3 Hgb (11.2-15.7) gm/dl Hct (34.1-44.9) % MCV (79.4-94.8) fl MCH (25.6-32.2) pg MCHC (32.2-35.5) g/dl RDW Std Deviation (36.4-46.3) fL Plt Count (182-369) K/mm3 MPV (9.4-12.3) fl POC Glucose 100 (70-105) mg/dL Membrane Rupture RPR (NONREACTIVE) Blood Type Gel Antibody Screen Med Orders - Current: Current Medications Acetaminophen (Tylenol) 650 mg PO Q4H PRN PRN Reason: mild pain or fever Benzocaine/Menthol (Dermoplast Pain Relief [place]) 0 gm TOP ASDIRECTED PRN PRN Reason: Perineal Comfort Measure Citalopram Hydrobromide (Celexa) 40 mg PO DAILY [place] Docusate Sodium (Colace) 100 mg PO BID PRN PRN Reason: Constipation Ibuprofen (Motrin) 600 mg PO Q6H PRN PRN Reason: Mild pain or fever Last Admin: 10/19/19 04:32 Dose: 600 mg Witch Eliane (Tucks) 1 pad TOP ASDIRECTED PRN PRN Reason: Perineal Comfort Measure Discontinued Medications Diphenhydramine HCl (Benadryl) 25 mg IVPUSH Q6H PRN PRN Reason: pruritis Ephedrine Sulfate (Ephedrine Sulfate) 5 mg IVPUSH ASDIRECTED PRN PRN Reason: Hypotension Fentanyl (Sublimaze) 100 mcg EPIDUR Q3H PRN PRN Reason: Pain Last Admin: 10/18/19 18:38 Dose: 100 mcg Fentanyl/Bupivacaine HCl (Fentanyl/Bupivacaine/Ns 2 Mcg-0.125% 100 Ml) 100 ml EPIDUR ASDIRECTED PRN PRN Reason: Pain Last Admin: 10/18/19 18:38 Dose: 100 ml Ampicillin Sodium 2 gm/ Sodium (Chloride) 100 mls @ 200 mls/hr IV ONETIME ONE Stop: 10/18/19 10:59 Last Admin: 10/18/19 13:58 Dose: Not Given Ampicillin Sodium 1 gm/ Sodium (Chloride) 100 mls @ 200 mls/hr IV Q4H [place] Lactated Ringer's (Ringers, Lactated) 1,000 mls @ 100 mls/hr IV ASDIRECTED [place] Oxytocin/Lactated Ringer's (Pitocin In Lr 10 Units/1,000 Ml) 10 unit in 1,000 mls @ 500 mls/hr IV .CONTINUOUS CHINO Ampicillin Sodium 2 gm/ Sodium (Chloride) 100 mls @ 200 mls/hr IV ONETIME ONE Stop: 10/18/19 12:29 Last Admin: 10/18/19 12:36 Dose: 200 mls/hr Lactated Ringer's (Ringers, Lactated) 1,000 mls @ 100 mls/hr IV ASDIRECTED [place]INO Last Infusion: 10/18/19 18:15 Dose: 150 mls/hr Ampicillin Sodium 1 gm/ Sodium (Chloride) 100 mls @ 200 mls/hr IV Q4H [facility] Last Admin: 10/18/19 16:26 Dose: 200 mls/hr Oxytocin/Lactated Ringer's (Pitocin In Lr 10 Units/1,000 Ml) 10 unit in 1,000 mls @ 500 mls/hr IV CONTINUOUS [place]INO Oxytocin/Lactated Ringer's (Pitocin In Lr 10 Units/1,000 Ml) 10 unit in 1,000 mls @ 12 mls/hr IV TITRATE CHINO; Protocol Last Titration: 10/18/19 20:30 Dose: 250 mls/hr Influenza Virus Vaccine (Fluzone Quad [id number] Syringe) 60 mcg IM .ONCE ONE Stop: 10/18/19 14:01 Nalbuphine HCl (Nubain) 10 mg IVPUSH Q2H PRN PRN Reason: Pain Nalbuphine HCl (Nubain) 10 mg IVPUSH Q2H PRN PRN Reason: Pain Ondansetron HCl (Zofran) 4 mg IVPUSH Q4H PRN PRN Reason: Nausea/Vomiting Ondansetron HCl (Zofran) 4 mg IVPUSH Q4H PRN PRN Reason: Nausea/Vomiting Sodium Chloride (Saline Flush) 10 ml FLUSH ASDIRECTED PRN PRN Reason: Keep Vein Open Sodium Chloride (Saline Flush) 10 ml FLUSH ASDIRECTED PRN PRN Reason: Keep Vein Open - Interaction Infant Disposition, : Ages [place] in Room with Family Infant Interaction: Holding Infant Feeding: Bottle Fed Support Person: - Recovery Exam Fundal Tone: Firm Fundal Level: At Umbilicus Fundal Placement: Midline Lochia Amount: Scant, Small Lochia Color: Rubra/Red Perineum Description: Intact, Minimal Bruising/Swelling Episiotomy/Laceration: None Bladder Status: Nonpalpable, Voiding Urinary Elimination: Voided - Exam General: Alert, Oriented, Cooperative GI/Abdominal Exam: Soft, Non-Tender Extremities: Normal Inspection Skin: Warm, Dry, Intact - Problem List & Annotations (1) 37 weeks gestation of SNOMED Code(s): 73248043 Code(s): Z3A.37 - 37 WEEKS GESTATION OF Status: Acute Current Visit: Yes (2) GBS carrier SNOMED Code(s): 0671204934685 Code(s): Z22.330 - CARRIER OF GROUP B STREPTOCOCCUS Status: Acute Current Visit: Yes (3) Gestational diabetes SNOMED Code(s): 03455798 Code(s): O24.419 - GESTATIONAL DIABETES MELLITUS IN , UNSP CONTROL Status: Acute Current Visit: Yes Qualifiers: Gestational diabetes mellitus control: insulin-controlled Trimester: third trimester Qualified Code(s): O24.414 - Gestational diabetes mellitus in , insulin controlled (4) Vaginal delivery SNOMED Code(s): 051693036 Code(s): O80 - ENCOUNTER FOR FULL-TERM UNCOMPLICATED DELIVERY Status: Acute Current Visit: Yes - Problem List Review Problem List Initiated/Reviewed/Updated: Yes - My Orders Last 24 Hours: My Active Orders 10/18/19 10:12 Vital Signs [RC] PER UNIT ROUTINE 10/18/19 10:13 Heart Tones [RC] ASDIRECTED Peripheral IV Care [RC] . DIRECTED 10/18/19 10:19 Blood Glucose Check, Bedside [RC] Q4HR 10/18/19 12:02 Resuscitation Status Routine 10/18/19 12:03 Heart Tones [RC] ASDIRECTED 10/18/19 12:05 Blood Glucose Check, Bedside [RC] Q4H 10/18/19 13:52 Influenza Vaccine Charge [RC] .DISCHARGE 10/18/19 21:57 Activity as Tolerated [RC] PER UNIT ROUTINE Vital Signs [RC] 09,15,21,03 Acetaminophen [Tylenol] 650 mg PO Q4H PRN Benzocaine/Menthol [Dermoplast Pain Relief [place]] See Dose Instructions TOP ASDIRECTED PRN Docusate Sodium [Colace] 100 mg PO BID PRN Ibuprofen [Motrin] 600 mg PO Q6H PRN Witch Eliane [Tucks] 1 pad TOP ASDIRECTED PRN Assess Lochia [WOMSER] Per Unit Routine Assess Uterine Involution [WOMSER] Per Unit Routine Breast Pump [WOMSER] Per Unit Routine Heat Therapy [OM.PC] PRN Ice Therapy [OM.PC] Per Unit Routine Perineal Care [OM.PC] Per Unit Routine Peripheral IV Discontinue [OM.PC] Routine Sitz Bath [OM.PC] Per Unit Routine 10/18/19 Dinner Regular Diet [DIET] 10/19/19 05:00 Blood Glucose Check, Bedside [RC] ONETIME 10/19/19 09:00 Citalopram [Celexa] 40 mg PO DAILY 10/19/19 21:57 Heat Therapy [OM.PC] PRN - Assessment Assessment:: PPD#1 - Plan Plan:: * Routine cares * Bottle feeding * Fasting blood sugar this AM appropriate, will need 2hr GTT at 6 weeks * Discharge home today vs tomorrow depending upon patient/Peds preferences
[2019-10-19] MEDS: Citalopram 20 MG Tab PO SCH (21:28)
--- NOTE | 2019-10-20 06:54 | PCM.DCSUM1 ---
Discharge Summary - Discharge Data Discharge Date: 10/20/19 Discharge Disposition: Home, Self-Care 01 Condition: Good - Referral to Home Health Primary Care Physician: Kitty Jerez MD - Discharge Diagnosis/Problem(s) (1) 37 weeks gestation of SNOMED Code(s): 13740896 ICD Code: Z3A.37 - 37 WEEKS GESTATION OF Status: Acute Current Visit: Yes (2) GBS carrier SNOMED Code(s): 4425785879592 ICD Code: Z22.330 - CARRIER OF GROUP B STREPTOCOCCUS Status: Acute Current Visit: Yes (3) Gestational diabetes SNOMED Code(s): 72736834 ICD Code: O24.419 - GESTATIONAL DIABETES MELLITUS IN , UNSP CONTROL Status: Acute Current Visit: Yes Qualifiers: Gestational diabetes mellitus control: insulin-controlled Trimester: third trimester Qualified Code(s): O24.414 - Gestational diabetes mellitus in , insulin controlled (4) Vaginal delivery SNOMED Code(s): 088773964 ICD Code: O80 - ENCOUNTER FOR FULL-TERM UNCOMPLICATED DELIVERY Status: Acute Current Visit: Yes - Patient Summary/Data Complications: None Consults: None Recommended Follow-up Testing/Procedures: Follow up in 3 weeks Hospital Course: 24 y/o presents at 37 2/7 wks who presented with SROM. Pitocin augmentation begun. Did well and underwent an uncomplicated . did well and was discharged home on PPD#2 - Patient Instructions Diet: Regular Diet as Tolerated Activity: As Tolerated Activity, Other: Pelvic rest for 6 weeks Driving: May Drive Today Showering/Bathing: May Shower Showering/Bathing, Other: May bathe Notify Provider of: Fever, Increased Pain, Swelling and Redness, Drainage, Nausea and/or Vomiting - Discharge Plan *PRESCRIPTION DRUG MONITORING PROGRAM REVIEWED*: No *COPY OF PRESCRIPTION DRUG MONITORING REPORT IN PATIENT JUAN MANUEL: No Home Medications: Home Meds Escitalopram [Lexapro] 20 mg PO DAILY 04/26/18 [History] Mv-Mn/Iron/FA/Herbal/Digestive [ One Tablet] 1 tab PO DAILY 09/25/19 [ History] Ibuprofen [Motrin] 600 mg PO Q6H PRN tablet 10/20/19 [Rx] Referrals: Kitty Jerez MD [Primary Care Provider] - (3 weeks for post check ) - Discharge Summary/Plan Comment DC Time >30 min.: No - Patient Data Vitals - Most Recent: Last Vital Signs Temp 36.4 C 10/19/19 14:07 Pulse 80 10/20/19 03:27 Resp 15 10/20/19 03:27 BP 105/50 L 10/20/19 03:27 Pulse Ox 96 10/20/19 03:27 Weight - Most Recent: 78.018 kg I&O - Last 24 hours: Intake & Output 10/19/19 10/19/19 10/20/19 14:59 22:59 06:59 Intake Total 360 240 Balance 360 240 Med Orders - Current: Current Medications Acetaminophen (Tylenol) 650 mg PO Q4H PRN PRN Reason: mild pain or fever Last Admin: 10/19/19 08:00 Dose: 650 mg Benzocaine/Menthol (Dermoplast Pain Relief Seltzer) 0 gm TOP ASDIRECTED PRN PRN Reason: Perineal Comfort Measure Citalopram Hydrobromide (Celexa) 40 mg PO DAILY [place] Last Admin: 10/19/19 21:28 Dose: Not Given Docusate Sodium (Colace) 100 mg PO BID PRN PRN Reason: Constipation Last Admin: 10/19/19 08:00 Dose: 100 mg Ibuprofen (Motrin) 600 mg PO Q6H PRN PRN Reason: Mild pain or fever Last Admin: 10/19/19 20:06 Dose: 600 mg Witch Eliane (Tucks) 1 pad TOP ASDIRECTED PRN PRN Reason: Perineal Comfort Measure Discontinued Medications Diphenhydramine HCl (Benadryl) 25 mg IVPUSH Q6H PRN PRN Reason: pruritis Ephedrine Sulfate (Ephedrine Sulfate) 5 mg IVPUSH ASDIRECTED PRN PRN Reason: Hypotension Fentanyl (Sublimaze) 100 mcg EPIDUR Q3H PRN PRN Reason: Pain Last Admin: 10/18/19 18:38 Dose: 100 mcg Fentanyl/Bupivacaine HCl (Fentanyl/Bupivacaine/Ns 2 Mcg-0.125% 100 Ml) 100 ml EPIDUR ASDIRECTED PRN PRN Reason: Pain Last Admin: 10/18/19 18:38 Dose: 100 ml Ampicillin Sodium 2 gm/ Sodium (Chloride) 100 mls @ 200 mls/hr IV ONETIME ONE Stop: 10/18/19 10:59 Last Admin: 10/18/19 13:58 Dose: Not Given Ampicillin Sodium 1 gm/ Sodium (Chloride) 100 mls @ 200 mls/hr IV Q4H [place] Lactated Ringer's (Ringers, Lactated) 1,000 mls @ 100 mls/hr IV ASDIRECTED [place]INO Oxytocin/Lactated Ringer's (Pitocin In Lr 10 Units/1,000 Ml) 10 unit in 1,000 mls @ 500 mls/hr IV .CONTINUOUS [place]INO Ampicillin Sodium 2 gm/ Sodium (Chloride) 100 mls @ 200 mls/hr IV ONETIME ONE Stop: 10/18/19 12:29 Last Admin: 10/18/19 12:36 Dose: 200 mls/hr Lactated Ringer's (Ringers, Lactated) 1,000 mls @ 100 mls/hr IV ASDIRECTED CHINO Last Infusion: 10/18/19 18:15 Dose: 150 mls/hr Ampicillin Sodium 1 gm/ Sodium (Chloride) 100 mls @ 200 mls/hr IV Q4H [facility] Last Admin: 10/18/19 16:26 Dose: 200 mls/hr Oxytocin/Lactated Ringer's (Pitocin In Lr 10 Units/1,000 Ml) 10 unit in 1,000 mls @ 500 mls/hr IV CONTINUOUS CHINO Oxytocin/Lactated Ringer's (Pitocin In Lr 10 Units/1,000 Ml) 10 unit in 1,000 mls @ 12 mls/hr IV TITRATE CHINO; Protocol Last Titration: 10/18/19 20:30 Dose: 250 mls/hr Influenza Virus Vaccine (Fluzone Quad [id number] Syringe) 60 mcg IM .ONCE ONE Stop: 10/18/19 14:01 Last Admin: 10/19/19 10:35 Dose: 60 mcg Nalbuphine HCl (Nubain) 10 mg IVPUSH Q2H PRN PRN Reason: Pain Nalbuphine HCl (Nubain) 10 mg IVPUSH Q2H PRN PRN Reason: Pain Ondansetron HCl (Zofran) 4 mg IVPUSH Q4H PRN PRN Reason: Nausea/Vomiting Ondansetron HCl (Zofran) 4 mg IVPUSH Q4H PRN PRN Reason: Nausea/Vomiting Sodium Chloride (Saline Flush) 10 ml FLUSH ASDIRECTED PRN PRN Reason: Keep Vein Open Sodium Chloride (Saline Flush) 10 ml FLUSH ASDIRECTED PRN PRN Reason: Keep Vein Open
[2019-10-20] MEDS: Ibuprofen 600 MG Tab PO PRN (09:10)
[2019-10-20] MEDS: Citalopram 20 MG Tab PO SCH (09:46)
== END 2019-10-20 11:30 | disposition home or self-care (01) | DRG 807 ==
LOC: JD.OBCHECK 09:55 → JD.OB 09:55 → JD.OBCHECK 10:13 → JD.OB 10:13 → OBSVTOIN 19:20 → JD.OB 19:20
PROVIDERS: ADMIT Obstetrics & Gynecology; ATTEND Obstetrics & Gynecology
PROC: 10E0XZZ Delivery of Products of Conception, External Approach (ICD-10-PCS; principal; 2019-10-18)
PROC: 3E0R3BZ Introduction of Anesthetic Agent into Spinal Canal, Percutaneous Approach (ICD-10-PCS; 2019-10-18)
PROC: 3E02340 Introduction of Influenza Vaccine into Muscle, Percutaneous Approach (ICD-10-PCS; 2019-10-19)
DX: O24.424 Gestational diabetes mellitus in childbirth, insulin controlled (principal); Z37.0 Single live birth; O99.824 Streptococcus B carrier state complicating childbirth; F41.9 Anxiety disorder, unspecified; F32.9 Major depressive disorder, single episode, unspecified; O99.344 Other mental disorders complicating childbirth; Z23 Encounter for immunization; Z87.891 Personal history of nicotine dependence; Z3A.37 37 weeks gestation of pregnancy; Z79.899 Other long term (current) drug therapy
CPT/HCPCS: 01967; 36415; 51702; 59025; 59409; 82962; 84112; 85027; 86592; 86850; 86900; 86901; 90686; A9270-GY; J0290; J2590; J3010; J7050; J7120

== ENCOUNTER 2020-02-27 15:52 | Emergency (ER) | payer OTHER ==
[2020-02-27] MEDS ORDERED: Promethazine 25 MG/ML SDV IM ONE (16:20)
[2020-02-27] MEDS ORDERED: HYDROmorphone 1 MG/ML Syringe IM ONE (16:20)
--- NOTE | 2020-02-27 16:27 | EDM.PDOC ---
ED HPI GENERAL MEDICAL PROBLEM - General Chief Complaint: Back Pain or Injury Stated Complaint: BACK PAIN Time Seen by Provider: 02/27/20 16:20 Source of Information: Reports: Patient, Family (friend) History Limitations: Reports: No Limitations - History of Present Illness INITIAL COMMENTS - FREE TEXT/NARRATIVE: 25-year-old female of [place] descent presents to the ED with complaints of diffuse low back pain worse on the right side as compared to the left. No known falls or injuries. 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 Most of her pain is in her mid right lower back and on examination is due to a rib head subluxation likely at thoracic 10 or 11 rib head. There is marked paraspinal muscle spasm in this area. Secondary pain in the right sacroiliac joint rating down the posterior buttock but not below the knee. There is no evidence clinically of nerve root impingement. She is tried all sorts of things at home to get relief which have failed. Plan she will be given an IM injection of Dilaudid 1 mg with Phenergan 12.5 mg for pain and muscle spasm relief. She will be started on prednisone 20 mg today then 20 mg twice daily with breakfast and supper for the next 5 days and then 20 mg only every morning for 5 more days. Voltaren 50 mg every 8 hours for the next 8 days to relieve pain and inflammation. Percocet tabs 5/325 mg 1 tablet every 4 hours as needed for pain relief x20 tablets provided. Advised to follow-up with a chiropractor on Sunday to have her rib heads adjusted on the right side of her lower back. The next 3 days off of work which will allow some time to reduce the inflammation and pain. Onset: Gradual Onset Date: 02/25/20 Duration: Day(s):, Getting Worse Location: Reports: Back (Pain right buttock rating down the posterior lateral thigh to), Lower Extremity, Right (And in the right buttock rating down the posterior lateral thigh but not below the knee.) Quality: Reports: Ache, Throbbing, Other Severity: Moderate (Patient no muscle spasm mid lower back 8 out of 10) Improves with: Reports: None Worsens with: Reports: Other, Movement Context: Denies: Activity (And sitting makes pain worse), Exercise, Lifting, Sick Contact, Trauma, Other Associated Symptoms: Reports: No Other Symptoms 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: Acetaminophen, NSAIDS, Other (see below) (Motrin heat) Bilateral Lower Back Pain Score (Numeric/FACES): 5 - Related Data Allergies Allergy/AdvReac Type Severity Reaction Status Date / Time No Known Allergies Allergy Verified 02/27/20 16:10 Home Meds: Home Meds Ibuprofen [Motrin] 600 mg PO Q6H PRN tablet 10/20/19 [Rx] Diclofenac Sodium [Voltaren] 50 mg PO TID #24 tab.ec 02/27/20 [Rx] oxyCODONE HCl/Acetaminophen [Percocet 5-325 mg Tablet] 1 - 2 each PO Q4H PRN #20 tablet 02/27/20 [Rx] predniSONE [Prednisone] 20 mg PO ASDIRECTED #16 tablet 02/27/20 [Rx] Past Medical History - Past Health History 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 History: Denies 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: , 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: miscarriage about 5 yrs ago-around 6 weeks and then miscarried at 8 weeks, currently 13 weeks Neurological History: Reports: Concussion Psychiatric History: Reports: Anxiety, Depression, Suicide Attempt, Suicidal Ideation Endocrine/Metabolic History: Reports: Diabetes, Gestational - Infectious Disease History Infectious Disease History: Reports: Chicken Pox - Past Surgical History Other Surgical History Comment: No past surgical history Social & Family History - Family History Family Medical History: Noncontributory - Caffeine Use Caffeine Use: Reports: None Caffeine Use Comment: Patient reports she drinks about 1 cup of tea per day - Living Situation & Occupation Living situation: Reports: Occupation: Employed ED ROS GENERAL - Review of Systems Review Of Systems: See Below Constitutional: Denies: Fever, Chills, Malaise, Weakness, Fatigue, Decreased Appetite, Weight Loss HEENT: Reports: No Symptoms Respiratory: Reports: No Symptoms Cardiovascular: Reports: No Symptoms Endocrine: Reports: No Symptoms GI/Abdominal: Reports: No Symptoms : Reports: No Symptoms Musculoskeletal: Reports: Back Pain (Occasional problems with back particularly in but never like this.) Skin: Reports: No Symptoms Neurological: Reports: Paresthesia (Paresthesias posterior lateral right thigh and buttock) Psychiatric: Reports: No Symptoms Hematologic/Lymphatic: Reports: No Symptoms Immunologic: Reports: No Symptoms ED EXAM,LOWER BACK PAIN/INJURY - Physical Exam Exam: See Below Exam Limited By: No Limitations General Appearance: Alert, WD/WN, Moderate Distress, Other (Patient has to stand for the evaluation and examination is too painful to lay down and to sit. Temperature is 36.5 heart rate 109 and sinus respiratory was 20 with sats 100%. BP 1 4491.) Back Exam: Muscle Spasm (Paraspinal muscle spasm over the right mid lower back. There appears to be rib head subluxation at thoracic 10 or 11 rib head.), Pa raspinal Tenderness (Kvng to the left side of her lumbar spine but very minimal.), Other (There is marked tenderness of the entire superior two thirds of the right sacroiliac joint as compared to the left.) Extremities: Normal Inspection ( This made the pain travel down the posterior lateral right thigh), Normal Range of Motion, Non-Tender, No Pedal Edema Neurological: Alert, Normal Mood/Affect, Normal Dorsiflexion, CN II-XII Intact, Normal Plantar Flexion, Normal Reflexes, Oriented x 3. No: Normal Gait (Antalgic gait) Psychiatric: Normal Affect, Normal Mood Skin Exam: Warm, Dry, Intact, Normal Color, No Rash Course - Vital Signs Last Recorded V/S: Last Vital Signs Temp 36.5 C 02/27/20 16:03 Pulse 109 H 02/27/20 16:03 Resp 20 02/27/20 16:03 BP 144/91 H 02/27/20 16:03 Pulse Ox 100 02/27/20 16:03 - Orders/Labs/Meds Meds: Medications Discontinued Medications Generic Name Dose Route Start Last Admin Trade Name Freq PRN Reason Stop Dose Admin Hydromorphone HCl 1 mg 02/27/20 16:20 02/27/20 16:28 Dilaudid IM 02/27/20 16:21 1 mg ONETIME ONE Administration Promethazine HCl 12.5 mg 02/27/20 16:20 02/27/20 16:28 Phenergan IM 02/27/20 16:21 12.5 mg ONETIME ONE Administration - Radiology Interpretation Free Text/Narrative:: 25-year-old female presents to the ED for evaluation of mid right lower back pain as well as right buttock pain rating down her posterior lateral right thigh. All of this started 2 days ago. There is been no specific work-related injuries falls or injuries. She has a young child at home which she lives in and out of the [facility]. 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 Problems with low back pain except during . On examination she has marked paraspinal muscle spasm on the right side over the the T10-11 rib head. I suspect T10 rib head is subluxed causing overlying muscle spasm. Advised she will have to seek chiropractic manipulation for this. In the lower back she has tenderness throughout the two thirds of the superior right sacroiliac joint. There is minimal paraspinal muscle spasm in the lumbar spine and no localized facet joint tenderness. She opted for treatment in the ED with a injection. She was given Dilaudid 1 mg IM with Phenergan 12.5 mg IM for muscle spasm relief and pain relief. She was discharged on Voltaren 50 mg twice daily for the next 8 days to reduce pain and inflammation. Prednisone 20 mg twice daily for 5 days breakfast and supper and then once in the morning only for another 5 days. Percocet tabs 5/325 mg 1 or 2 tablets every 4-6 hours necessary for pain relief. Advised following up with a chiropractor on Sunday. Departure - Departure Time of Disposition: 16:21 Disposition: Home, Self-Care 01 Condition: Fair Clinical Impression: Sacroiliitis Thoracic back pain Qualifiers: Chronicity: acute Back pain laterality: right Qualified Code(s): M54.6 - Pain in thoracic spine - Discharge Information *PRESCRIPTION DRUG MONITORING PROGRAM REVIEWED*: Not Applicable *COPY OF PRESCRIPTION DRUG MONITORING REPORT IN PATIENT JUAN MANUEL: Not Applicable Prescriptions: oxyCODONE HCl/Acetaminophen [Percocet 5-325 mg Tablet] 1 - 2 each PO Q4H PRN #20 tablet PRN Reason: pain relief. predniSONE [Prednisone] 20 mg PO ASDIRECTED #16 tablet Diclofenac Sodium [Voltaren] 50 mg PO TID #24 tab.ec Instructions: Thoracic Strain, [id number], Sacroiliac Joint Dysfunction Referrals: PCP,None [Primary Care Provider] - Forms: ED Department Discharge Additional Instructions: Evaluation in the emergency room today in regards to lower back pain on the right side which is due to a rib head subluxation at the 10th or 11th rib on the right side. This is causing marked muscle spasm in this area which would be made worse by repetitive twisting type movements. Very minimal pain throughout the lumbar spine appreciated. Marked pain appreciated on palpation of the right sacroiliac joint as compared to the left. We call this sacroiliitis. Treatment was an intramuscular injection of medicine for pain relief in the ED Dilaudid 1 mg with Phenergan 12.5 mg to provide acute pain relief. Unfortunate this will likely provide some degree of sedation and you will probably have to have a nap for a period of time. Other medications are to be picked up at the drugstore. Voltaren 50 mg 3 times daily for the next 8 days to relieve pain and inflammation in the facet joints as well as the SI joint. Deltasone or prednisone 20 mg twice daily with breakfast and supper for 5 days and then once in the morning only for another 5 days. Should try and take your first 1 with suppertime tonight. Last one is Percocet tabs 5/325 mg which are used for pain relief. Ideally 1 tablet every 4 hours for pain relief. Occasionally you may have to take 2 tablets. Of note if you take these pain medicines you cannot operate a motor vehicle. I would suggest follow-up with a chiropractor on Sunday to have your rib head adjusted in your right lower back. Continue heat packs to the area 1/2-hour out of every 4 hours if it provides some relief of the discomfort. SPECT marked improvement over the next 36-72 hours Sepsis Event Note (ED) - Evaluation Sepsis Screening Result: No Definite Risk - Focused Exam Vital Signs: Vital Signs Temp Pulse Resp BP Pulse Ox 02/27/20 16:03 36.5 C 109 H 20 144/91 H 100
== END 2020-02-27 16:51 | disposition home or self-care (01) ==
LOC: JD.ED 15:52
DX: M46.1 Sacroiliitis, not elsewhere classified (principal); M54.6 Pain in thoracic spine
CPT/HCPCS: 96372; 99283; J1170; J2550

== ENCOUNTER 2020-03-03 22:54 | Emergency (ER) | payer OTHER | END 2020-03-04 00:28 | LOC: JD.ED 22:54 | DX: Z53.21 Procedure and treatment not carried out due to patient leaving prior to being seen by health care provider (principal) ==

== ENCOUNTER 2021-01-04 15:28 | Emergency (ER) | payer MEDICAID, OTHER ==
[2021-01-04] MEDS ORDERED: Sodium Chloride 0.9% 10 ML Syringe FLUSH PRN (16:18)
[2021-01-04] MEDS ORDERED: Sodium Chloride 0.9% 1,000 ML IV STA (16:19)
[2021-01-04] MEDS ORDERED: Alum Hydrox/Mag Hydrox/Simeth 30 ML, Lidocaine 2% 15 ML PO ONE ×2 (16:22)
[2021-01-04] MEDS ORDERED: Acetaminophen/oxyCODONE 325-5 MG Tab PO ONE (17:30)
[2021-01-04] MEDS ORDERED: HYDROmorphone 0.5 MG/0.5 ML Syringe IVPUSH ONE (17:30)
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
--- NOTE | 2021-01-04 19:30 | US ---
Limited abdominal ultrasound: Multiple real-time images were obtained of the upper right abdomen. Liver shows no focal abnormality. Gallbladder shows small cholesterol crystals floating within the lumen. There is no shadowing cholelithiasis being seen. No biliary duct dilatation is noted. Pancreas is not completely seen. Visualized portions of the pancreas are within normal limits. Right kidney shows a small upper pole cyst measuring 1 cm. Inferior vena cava is patent. Main portal vein shows normal hepatopedal flow. Impression: 1. Cholesterol crystals within the gallbladder lumen. No shadowing cholelithiasis, gallbladder wall thickening or biliary duct dilatation is seen. 2. Small cyst within the upper right kidney. 3. Other portions of the right upper quadrant abdominal ultrasound appear unremarkable. Diagnostic code #2
== END 2021-01-04 20:33 | disposition home or self-care (01) ==
LOC: JD.ED 15:28
DX: O23.43 Unspecified infection of urinary tract in pregnancy, third trimester (principal); O21.2 Late vomiting of pregnancy; O99.891 Other specified diseases and conditions complicating pregnancy; R07.89 Other chest pain; Z3A.32 32 weeks gestation of pregnancy; Z20.822 Contact with and (suspected) exposure to COVID-19
CPT/HCPCS: 36415; 76705; 80053; 81001; 82947; 84484; 85025; 87635; 93005; 96374; 99285; A9270; J1170; J7030; 93010; 99284; U0002

== ENCOUNTER 2021-01-18 20:32 | Emergency (ER) | payer OTHER ==
[2021-01-18] MEDS ORDERED: Lidocaine 1% 10 ML MDV INJECT ONE (21:05)
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
== END 2021-01-18 22:21 | disposition home or self-care (01) ==
LOC: JD.ED 20:32
DX: S61.211A Laceration without foreign body of left index finger without damage to nail, initial encounter (principal); W26.8XXA Contact with other sharp object(s), not elsewhere classified, initial encounter
CPT/HCPCS: 12001; 99282; 99282-25

== ENCOUNTER 2022-04-24 15:28 | Emergency (ER) | payer SELFPAY | END 2022-04-24 16:44 | disposition home or self-care (01) | LOC: JD.ED 15:28 | DX: F32.A Depression, unspecified (principal); R45.851 Suicidal ideations; Z79.899 Other long term (current) drug therapy | CPT/HCPCS: 99283; 99284 ==

== ENCOUNTER 2023-06-18 13:07 | Emergency (ER) | payer SELFPAY ==
[2023-06-18 14:10] LABS: BASOPHILS PERCENT AUTO 0.2 % (0.0-1.0); EOSINOPHILS PERCENT AUTO 0.1 % (0.0-6.0); HEMATOCRIT 38.8 % (37.0-47.0); HEMOGLOBIN 13.2 gm/dl (12.0-16.0); IMMATURE GRAN ABSOLUTE AUTO 0.06 K/mm3 (0.00-0.05); IMMATURE GRAN PERCENT AUTO 0.5 % (0.0-0.4); LYMPHOCYTES ABSOLUTE AUTO 2.2 K/mm3 (1.0-4.8); LYMPHOCYTES PERCENT AUTO 19.1 % (24.0-44.0); MEAN CORPUSCULAR HEMOGLOBIN 28.2 pg (28.0-32.0); MEAN CORPUSCULAR VOLUME 82.9 fl (83.0-99.0); MEAN PLATELET VOLUME 9.6 fl (9.4-12.3); MONOCYTES ABSOLUTE AUTO 0.5 K/mm3 (0.0-0.8); MONOCYTES PERCENT AUTO 4.1 % (0.0-8.0); NEUTROPHILS ABSOLUTE AUTO 8.7 K/mm3 (1.8-7.7); PLATELET COUNT,PLT 300 K/mm3 (150-400); RED BLOOD CELL COUNT 4.68 M/mm3 (4.10-5.30); WHITE BLOOD CELL COUNT,WBC 11.48 K/mm3 (3.9-11.3)
[2023-06-18 14:34] LABS: APPEARANCE,URINE CLEAR (Clear); BILIRUBIN,URINE NEGATIVE (Negative); COLOR,URINE YELLOW (Yellow); GLUCOSE,URINE NEGATIVE (Negative); KETONES,URINE NEGATIVE (Negative); LEUKOCYTE ESTERASE,URINE 1+ (Negative); NITRITE,URINE NEGATIVE (Negative); OCCULT BLOOD,URINE 3+ (Negative); PROTEIN,URINE NEGATIVE (Negative); UROBILINOGEN,URINE 0.2 (0.2-1.0)
[2023-06-18 14:39] LABS: BARBITURATE SCREEN,URINE NEGATIVE (CUTOFF=200); BENZODIAZEPINES SCREEN,URINE NEGATIVE (CUTOFF=150); BUPRENORPHINE SCREEN,URINE NEGATIVE (CUTOFF=10); METHADONE SCREEN, URINE NEGATIVE (CUTOFF=200); METHAMPHETAMINES SCREEN, URINE NEGATIVE (CUTOFF=500); OXYCODONE SCREEN,URINE NEGATIVE (CUT0FF=100); PROPOXYPHENE SCREEN,URINE NEGATIVE (CUTOFF=300); THC SCREEN,URINE 20 NG/ML NEGATIVE (CUTOFF=50)
[2023-06-18 14:40] LABS: AMPHETAMINES SCREEN, URINE NEGATIVE (CUTOFF=500)
[2023-06-18 14:52] LABS: BACTERIA,URINE FEW /hpf (FEW); MUCUS,URINE RARE /hpf (FEW); RENAL EPITHELIAL CELLS,URINE 0-5 /hpf (0-5); SQUAMOUS EPITHELIAL CELLS,UR 0-5 /hpf (0-5)
[2023-06-18] MEDS ORDERED: Ibuprofen 800 MG Tab PO ONE (16:24)
[2023-06-18] MEDS ORDERED: Acetaminophen 325 MG Tab PO ONE (16:24)
== END 2023-06-18 17:00 | disposition home or self-care (01) ==
LOC: JD.ED 13:07
DX: O03.9 Complete or unspecified spontaneous abortion without complication (principal)
CPT/HCPCS: 36415; 76805; 80306; 81001; 85025; 86900; 86901; 87086; 99284; A9270

== ENCOUNTER 2023-06-19 18:19 | Emergency (ER) | payer SELFPAY ==
[2023-06-19] MEDS ORDERED: HYDROmorphone 0.5 MG/0.5 ML Syringe IVPUSH ONE (19:06)
[2023-06-19] MEDS ORDERED: Sodium Chloride 0.9% 1,000 ML IV SCH (19:15)
[2023-06-19] MEDS ORDERED: Misoprostol 200 MCG Tab BUCCAL ONE (19:45)
[2023-06-19 20:15] LABS: BASOPHILS PERCENT AUTO 0.2 % (0.0-1.0); EOSINOPHILS PERCENT AUTO 0.1 % (0.0-6.0); HEMATOCRIT 30.3 % (37.0-47.0); HEMOGLOBIN 10.3 gm/dl (12.0-16.0); IMMATURE GRAN ABSOLUTE AUTO 0.12 K/mm3 (0.00-0.05); IMMATURE GRAN PERCENT AUTO 0.6 % (0.0-0.4); LYMPHOCYTES ABSOLUTE AUTO 1.7 K/mm3 (1.0-4.8); LYMPHOCYTES PERCENT AUTO 8.6 % (24.0-44.0); MEAN CORPUSCULAR HEMOGLOBIN 28.4 pg (28.0-32.0); MEAN CORPUSCULAR VOLUME 83.5 fl (83.0-99.0); MEAN PLATELET VOLUME 9.6 fl (9.4-12.3); MONOCYTES ABSOLUTE AUTO 0.7 K/mm3 (0.0-0.8); MONOCYTES PERCENT AUTO 3.8 % (0.0-8.0); NEUTROPHILS ABSOLUTE AUTO 16.6 K/mm3 (1.8-7.7); NEUTROPHILS PERCENT AUTO 86.7 % (41.0-71.0); PLATELET COUNT,PLT 274 K/mm3 (150-400); RED BLOOD CELL COUNT 3.63 M/mm3 (4.10-5.30); WHITE BLOOD CELL COUNT,WBC 19.12 K/mm3 (3.9-11.3)
[2023-06-19] MEDS ORDERED: Ketorolac 30 MG/ML SDV IVPUSH ONE (21:29)
[2023-06-19] MEDS ORDERED: Misoprostol 100 MCG Tab PO ONE (22:19)
[2023-06-19] MEDS ORDERED: Misoprostol 200 MCG Tab ONE (22:24)
[2023-06-20] MEDS ORDERED: Misoprostol 200 MCG Tab PO ONE (21:55)
== END 2023-06-19 22:37 | disposition home or self-care (01) ==
LOC: SUPCPDRO 18:19 → JD.ED 18:19
DX: O03.9 Complete or unspecified spontaneous abortion without complication (principal); Z79.899 Other long term (current) drug therapy
CPT/HCPCS: 36415; 85025; 86900; 86901; 88233; 96361; 96374; 96375; 99284; A9270; J1170; J1885; J7030

== ENCOUNTER 2024-03-02 09:52 | Emergency (ER) | payer SELFPAY ==
[2024-03-02 11:41] LABS: BASOPHILS PERCENT AUTO 0.3 % (0.0-1.0); EOSINOPHILS PERCENT AUTO 0.2 % (0.0-6.0); HEMOGLOBIN 12.3 gm/dl (12.0-16.0); IMMATURE GRAN ABSOLUTE AUTO 0.02 K/mm3 (0.00-0.05); IMMATURE GRAN PERCENT AUTO 0.2 % (0.0-0.4); LYMPHOCYTES ABSOLUTE AUTO 2.1 K/mm3 (1.0-4.8); LYMPHOCYTES PERCENT AUTO 23.7 % (24.0-44.0); MEAN CORPUSCULAR HEMOGLOBIN 24.8 pg (28.0-32.0); MEAN CORPUSCULAR HGB CONC 31.5 g/dl (32.0-36.0); MEAN CORPUSCULAR VOLUME 78.8 fl (83.0-99.0); MEAN PLATELET VOLUME 9.9 fl (9.4-12.3); MONOCYTES ABSOLUTE AUTO 0.5 K/mm3 (0.0-0.8); MONOCYTES PERCENT AUTO 6.2 % (0.0-8.0); NEUTROPHILS PERCENT AUTO 69.4 % (41.0-71.0); PLATELET COUNT,PLT 330 K/mm3 (150-400); RED BLOOD CELL COUNT 4.95 M/mm3 (4.10-5.30); WHITE BLOOD CELL COUNT,WBC 8.72 K/mm3 (3.9-11.3)
[2024-03-02 12:03] LABS: A/G RATIO 0.8 (1-2); ALBUMIN 3.5 g/dl (3.4-5.0); ANION GAP 12.1 (5-15); BILIRUBIN TOTAL 0.2 mg/dL (0.2-1.0); CALCIUM 8.7 mg/dL (8.5-10.1); EST CRCL DRUG DOSING (CG) 64.47 mL/min; POTASSIUM,K 4.1 mEq/L (3.5-5.1); PROTEIN TOTAL,TP 7.9 g/dl (6.4-8.2)
== END 2024-03-02 12:29 | disposition home or self-care (01) ==
LOC: JD.ED 09:52
DX: H66.92 Otitis media, unspecified, left ear (principal); H93.12 Tinnitus, left ear; R42 Dizziness and giddiness; F17.210 Nicotine dependence, cigarettes, uncomplicated; Z88.0 Allergy status to penicillin
CPT/HCPCS: 36415; 70450; 70450-26; 80053; 85025; 99283; 99285

== ENCOUNTER 2024-08-28 14:10 | Emergency (ER) | payer OTHER | END 2024-08-28 15:17 | disposition home or self-care (01) | LOC: JD.ED 14:10 | DX: S80.01XA Contusion of right knee, initial encounter (principal); Z79.899 Other long term (current) drug therapy; W00.0XXA Fall on same level due to ice and snow, initial encounter | CPT/HCPCS: 73562-26-RT; 73562-RT; 99283 ==